=== PATIENT | female | born 2000 | race African-American/Black ===

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

== ENCOUNTER 2022-03-22 12:38 | Emergency (ER) | payer SELFPAY ==
[2022-03-22 13:36] LABS: #Basophils 0.1 thou/uL (0.0-0.2); #Eosinphils 0.2 thou/uL (0.0-0.7); #Lymphocytes 3.2 thou/uL (1.20-3.40); #Monocytes 0.6 thou/uL (0.11-0.59); #Neutrophils 6.7 thou/uL (1.40-6.50); %Basophils 0.9 % (0.0-1.0); %Eosinophils 1.8 % (0.0-10.0); %Lymphocytes 29.3 % (28.0-48.0); %Monocytes 5.8 % (0.0-4.0); %Neutrophils 62.2 % (31.0-61.0); Mean Corpuscular HGB CONC 31.7 g/dL (32.0-36.0); Mean Corpuscular Hemoglobin 27.8 pg (25.0-35.0); Mean Corpuscular Volume 87.8 fL (78.0-98.0); Platelet Count 420 thou/uL (130-400); RBC Distribution Width 14.5 % (11.5-14.5); Red Blood Cell (RBC) Count 5.03 mill/uL (4.00-5.20); White Blood Cell (WBC) Count 10.8 thou/uL (4.8-10.8)
[2022-03-22 13:46] LABS: BHCG - Serum Negative (NEGATIVE); Pregs Control Bar Appear? YES (CONTROL BAR)
[2022-03-22 13:53] LABS: ALT (SGPT) 23 U/L (8-55); AST (SGOT) 18 U/L (5-30); Albumin 4.5 g/dL (3.5-5.0); Alkaline Phosphatase 79 U/L (40-100); Anion Gap 18 mmol/L (10-20); BUN (Urea Nitrogen) 14 mg/dL (8.4-21.0); Bilirubin, Total 0.2 mg/dL (0.2-1.2); Calc. Creatinine Clearance 0 mL/min (70-130); Carbon Dioxide 16 mmol/L (22-29); Chloride 107 mmol/L (98-107); Estimated GFR 121; Globulin 3.1 g/dL (2.4-3.5); Glucose 91 mg/dL (70-105); Potassium 4.5 mmol/L (3.5-5.1); Protein, Total 7.6 g/dL (6.0-8.3); Sodium 136 mmol/L (136-145)
[2022-03-22] MEDS ORDERED: Sodium Chloride 0.9% 1,000 ML ONE (14:13)
== END 2022-03-22 15:20 | disposition home or self-care (01) ==
LOC: NAV ERS 12:38
DX: E86.0 Dehydration (principal); R55 Syncope and collapse
CPT/HCPCS: 80053; 84703; 85025; 93005; J7050

== ENCOUNTER 2022-04-18 09:58 | Emergency (ER) | payer SELFPAY ==
[2022-04-18] MEDS ORDERED: Ibuprofen 200 MG TAB ONE (10:29)
== END 2022-04-18 11:19 | disposition home or self-care (01) ==
LOC: NAV ERS 09:58
DX: B34.9 Viral infection, unspecified (principal); Z20.822 Contact with and (suspected) exposure to COVID-19
CPT/HCPCS: 87804; 99283; U0003; U0005

== ENCOUNTER 2023-05-16 10:41 | Emergency (ER) | payer SELFPAY ==
[2023-05-16 11:25] LABS: #Basophils 0.1 thou/uL (0.0-0.2); #Eosinphils 0.1 thou/uL (0.0-0.7); #Lymphocytes 3.1 thou/uL (1.20-3.40); #Monocytes 0.7 thou/uL (0.11-0.59); #Neutrophils 5.9 thou/uL (1.40-6.50); %Basophils 0.7 % (0.0-1.0); %Eosinophils 1.5 % (0.0-10.0); %Lymphocytes 31.7 % (28.0-48.0); %Monocytes 6.6 % (0.0-4.0); %Neutrophils 59.5 % (31.0-61.0); Hemoglobin 11.5 g/dL (12.0-16.0); Mean Corpuscular Hemoglobin 27.4 pg (25.0-35.0); Mean Corpuscular Volume 85.6 fl (78.0-98.0); Mean Platelet Volume 7.7 fL (7.4-10.4); Platelet Count 373 10x3/uL (130-400); RBC Distribution Width 13.1 % (11.5-14.5); Red Blood Cell (RBC) Count 4.21 mill/uL (4.00-5.20); White Blood Cell (WBC) Count 9.8 10x3/uL (4.8-10.8)
[2023-05-16 12:42] LABS: Pregnancy Test - Urine (BHCG) Negative (Negative)
[2023-05-16 12:43] LABS: Pregu Control Background? CLEAR/WHITE (CLR/WHITE); Pregu Control Bar Appear? YES (CONTROL BAR); Specific Gravity 1.035 (1.002-1.036)
== END 2023-05-16 13:01 | disposition home or self-care (01) ==
LOC: NAV ERS 10:41
DX: N93.9 Abnormal uterine and vaginal bleeding, unspecified (principal)
CPT/HCPCS: 81025; 85025; 99284